=== PATIENT | female | born 1960 | race Caucasian/White ===

== ENCOUNTER 2016-11-22 15:34 | Observation (INO) | payer OTHER ==
[~2016-11-22] VITALS: Ht 154.9 cm; Wt 59.9 kg
[2016-11-22 15:38] VITALS: BP 196/106; PULSE 82; RESP 18; O2SAT 98
--- NOTE | 2016-11-22 16:00 | ED.REPORT ---
HPI-Neurologic Deficit Date of Service Nov 22, 2016 ED Provider: Kevin Singh Patient is a 56 year old female with a history of transient global amnesia who presents to the ED complaining of memory loss onset 45 minutes ago. Her and her father were looking at properties when she started asking the same questions over and over again. She reports that she feels "like I just came out of a dream ". She denies fever, chills, vomiting, diarrhea, visual loss, or any other symptoms. Upon questioning the patient knows her year and the season but not her how old she is, the date, the year, or the president. She has had similar symptoms previously. She saw a neurologist (Tristan) a few years ago. Her mother had the same symptoms multiple times which were diagnosed as TIA's and she ended up having a stroke at age 70. Nursing Notes Stated Complaint: MEMORY LOSS Chief Complaint: Neuro Symptoms/ Deficits Nursing Notes Reviewed: Yes General Time Seen by Provider: 15:48 Chief Complaint Other (Memory loss) Hx Obtained From: Patient, Other family... 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 (0) Horizontal EO Movements: None (0) Visual Jordan: No visual loss (0) Facial Palsy: Normal symmetry (0) Right Arm Motor Drift (10s): No drift 10 sec (0) Left Arm Motor Drift (10s): No drift 10 sec (0) Right Leg Motor Drift (5s): No drift 5 sec (0) Left Leg Motor Drift (5s): No drift 5 sec (0) Limb Ataxia FNF/Heel-Lee: No ataxia (0) Sensation (Arms/Legs/Face): No sensory loss (0) Language Aphasia: No aphasia, normal (0) Dysarthria: No dysarthria, normal (0) Extinction/Inattention: No exctinct/inattent (0) NIHSS Score: 2 Time NIHSS Performed: 15:55 Date NIHSS Performed: Nov 22, 2016 Past Medical History Past Medical History 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 Physical Exam Initial Vital Signs Vital Signs (First) Date Time Temp Pulse Resp B/P Pulse Ox O2 Delivery O2 Flow Rate FiO2 11/22/16 15:38 36.1 82 18 196/106 98 Room Air Initial VS: Reviewed Neck: Full range of motion Abdomen / GI: Soft, Non-tender Skin: Warm, Dry General/Constitutional: Awake, Alert, Well appearing, Well developed Head / Eyes: Atraumatic, Normocephalic Respiratory / Chest: No respiratory distress Cardiovascular: Peripheral circulation NL Neurologic: Speech NL, No motor deficits, No sensory deficits, CN II - XII intact Patient keeps asking questions of orientation, why she is here, and wants to be sure I know she is a hemaphilia carrier. She keeps repeating these questions. Does not recall hasmukh or thanksgiving. Partner and father recall this is very similar to previous presentations. Interpretation & Diagnostics Lab Results Interpretation Result Diagram: 11/22/16 1629 11/22/16 1629 Test 11/22/16 15:56 11/22/16 16:29 11/22/16 16:47 Urine Color Straw (YELLOW) Urine Appearance Clear (CLEAR,HAZY) Urine pH 6.0 (5.0-8.0) Urine Specific Norris 1.015 (1.003-1.035) Urine Protein Negativemg/dL (NEG,TRACE) Urine Glucose (UA) Negativemg/dL (NEGATIVE) Urine Ketones Negativemg/dL (NEGATIVE) Urine Occult Blood Trace (NEGATIVE) Urine Nitrite Negative (NEGATIVE) Urine Bilirubin Negative (NEGATIVE) Urine Urobilinogen Normalmg/dL (NORMAL) Urine Leukocyte Esterase Negative (NEGATIVE) Urine RBC 0-2/hpf (0-2) Urine WBC 0-5/hpf (0-5) Urine Epithelial Cells Occasional/hpf (NONE-MOD) Urine Crystals None seen (NONE SEEN) Urine Bacteria None/hpf (NONE-FEW) Urine Hyaline Casts None/lpf (NONE) Urine Granular Casts None seen (NONE SEEN) Urine Waxy Casts None seen (NONE SEEN) Urine Red Blood Cell Casts None seen (NONE SEEN) Urine White Blood Cell Casts None seen (NONE SEEN) Urine Mucus None seen (None Seen) Urine Trichomonas None seen (NONE SEEN) Urine Yeast None (NONE SEEN) Urinalysis Comment None Urine Culture Reflexed Not indicated Hold Urine Received (Received) White Blood Count 8.7th/mm3 (3.8-10.1) Red Blood Count 5.87mil/mm3 (3.90-5.20) Hemoglobin 16.6g/dL (12.0-15.6) Hematocrit 50.5% (35.0-46.0) Mean Corpuscular Volume 86.0fL (81-100) Mean Corpuscular Hemoglobin 28.3pg (27.0-35.0) Mean Corpuscular Hemoglobin Concent 32.9% (32.0-37.0) Red Cell Distribution Width 13.1% (12.3-15.4) Platelet Count 242bil/L (150-400) Neutrophils (%) (Auto) 64.8% (40-74) Lymphocytes (%) (Auto) 24.5% (14-46) Monocytes (%) (Auto) 8.1% (4-12) Eosinophils (%) (Auto) 1.9% (0-5) Basophils (%) (Auto) 0.6% (0-3) Sodium Level 137mEq/L (134-144) Potassium Level 3.9mEq/L (3.5-5.2) Chloride Level 98mEq/L (97-108) Carbon Dioxide Level 27mmol/L (18-29) Blood Urea Nitrogen 13mg/dL (6-24) Creatinine 0.68mg/dL (0.57-1.00) Estimat Glomerular Filtration Rate 129mL/min (>59) Glucose Level 98mg/dL (60-99) Calcium Level 9.6mg/dL (8.5-10.1) Total Bilirubin 0.3mg/dL (0.0-1.2) Aspartate Amino Transf (AST/SGOT) 36U/L (0-50) Alanine Aminotransferase (ALT/SGPT) 48U/L (0-32) Alkaline Phosphatase 115U/L (25-150) Total Protein 7.6g/dL (6.4-8.4) Albumin 4.2g/dL (3.4-5.0) Hold Ocampo Top Tube Received (Received) ECG Interpretation ECG Interpretation: sinus rate 75 prolonged VT interval LBBB Time: 16:42 Interpreted by: ED physician Re-Eval/Medical Decision Re-Evaluation/Progress #1: Time of Eval: 16:17 )( Re-Eval Neurologic Exam: Alert Re-Evaluation/Progress Note: Rechecked patient. She does not remember getting to the hospital. Re-Evaluation/Progress #2: Time of Eval: 17:44 )( Re-Eval Neurologic Exam: Alert Re-Evaluation/Progress Note: Rechecked patient. She was crying as she was informed that her dog around Hasmukh time as she had forgotten. Discussed options for admission or discharge. Family will discuss and decide. Consultation #1: Consulted With: Neurology Call Returned at: 16:06 Tea Blender: Agrees with eval, Agrees with plan Note: Discussed patient's case with Stephania Olguin at [facility] neurology. Reccomends getting an MRI and EEG instead of CT. Doesn't reccommend discharging unless patient begins to act normally. Consultation #2: Referral / Consult Name: MARTIN VORA MD Consulted With: Neurology Call Returned at: 19:14 Note: Dr. Hudson recommended EEG as soon as available. If the patient is not clearing in a day or so, repeat MRI/MRA. He is willing to see the patient in clinic any day next week if needed in follow-up Consultation #3: Referral / Consult Name: Portia Valenzuela MD Consulted With: Hospitalist Call Returned at: 19:33 Tea Blender: Accepts admit Discharge & Departure Impression: Primary Impression: Amnesia Disposition: ADMITTED TO HOSPITAL Referrals: Martin Hudson MD Scribe Attestation Portions of this note were transcribed by David Cabrera. I, Dr. Singh personally performed the history, physical exam and medical decision-making; I reviewed and confirmed the accuracy of the information in the transcribed note. Signed by: David Cabrera 11/22/16, 1834 copies to: Martin Hudson MD, Kirk H MD Nov 22, 2016 16:00 DAVID CABRERA Nov 22, 2016 18:24
[2016-11-22 16:34] LABS: APPEARANCE,URINE CLEAR (CLEAR,HAZY); COLOR,URINE STRAW (YELLOW); OCCULT BLOOD,URINE TRACE (NEGATIVE); UROBILINOGEN,URINE NORMAL (NORMAL)
[2016-11-22 16:52] LABS: BASOPHILS % (AUTO) 0.6 % (0-3); EOSINOPHILS % (AUTO) 1.9 % (0-5); MONOCYTES % (AUTO) 8.1 % (4-12); Mean Corpuscular Hemoglobin 28.3 pg (27.0-35.0); NEUTROPHILS % (AUTO) 64.8 % (40-74); Platelet Count 242 bil/L (150-400)
[2016-11-22] MEDS ORDERED: Alum-Mag Hydrox-Simeth 30 mL Suspension PO PRN (19:45)
[2016-11-22] MEDS ORDERED: Ondansetron 2 mg/mL 2 mL Inj IVPUSH PRN (19:45)
[2016-11-22 20:30] VITALS: BP 178/101; PULSE 78; RESP 16; O2SAT 98
[2016-11-22 20:42] VITALS: BP 156/100; PULSE 80; RESP 18; O2SAT 98
[2016-11-22] MEDS ORDERED: hydrALAZINE 20 mg/mL Inj IVPUSH PRN (20:55)
[2016-11-22] MEDS ORDERED: Labetalol 5 mg/mL 4 mL Inj IVPUSH PRN (20:55)
--- NOTE | 2016-11-22 20:58 | PCM.HPMED ---
Subjective Date of Service Nov 22, 2016 Primary Provider: Admitting Physician: Portia Valenzuela MD Primary Care Physician: Robyn Aguilera MD Attending Physician: Portia Valenzuela MD Chief Complaint: Recurrent memory loss HISTORY was OBTAINED FROM PATIENT / MEDITECH NOTES History of present illness 56-year-old female with transient global amnesia, with local neurologist Vik Hudson, whom she last saw a few years ago, was brought in by family because of recurrent memory loss less than an hour prior to ER presentation. Dr. Hudson has done an extensive workup previously. ER doctor spoke with primary neurologist who recommended, monitoring for 24 hours, if memory loss is no better than order EEG which is only available on Thursday, and order MRI CVA protocol. crew caller [facility] neurologist indicated to observe until she clears. Walter and Prosper, with neurology staff, declined admission. Per same presentation - expecting 2 days of repeated questions/ anxiety/ waves of warmth/woke. mild head ache in ER no head trauma, has been w/ father when confusion started, BIB life partner, who was present w/ her 1st and only other Transient global amnesia (lost track of 3 days). Currently she has loss track of several months. In ER, she indicated to nurse that she feels like she is dreaming, Confused, Pt. cant remember he age but can remember her birthday. Can't remember month or year but does know it is winter. 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 A, no ASA due to hemorrhage every post transient global amnesia (multiple episodes) elevated Hg, negative polycytemia evaluation Denies: Diabetes mellitus, Hypertension anxiety RLS Exam on admission repeats same answers/questions NAD A and O x 3 mood affect WNL NC/AT no icterus no injected eyes EOMI PERRL /no pharyngeal lesions/ no oral lesions / hearing intact Supple neck CTAB equal chest rise / no accessory muscle use / speaks in full sentences / no rrw RRR S1 S2 / no mrg / 2+ radial pulses Soft nt nd + BS no hepatosplenomegaly No edema no cyanosis no ecchymosis of lower extremities No rash / no jaundice BLANC CNII-XII grossly intact symmetrical No dysmetria of bilateral upper and lower limbs Strength grossly intact of bilateral upper and lower limbs Sensation grossly symmetrical of bilateral upper and lower limbs symmetrical facies UA per ER dipstick neg EKG SR LBBB Trop pending LFT ALT 46 Imaging 07/2011 PROCEDURE: CT BRAIN WITHOUT CONTRAST ([id number]) INDICATIONS: DIZZY AND RINGING IN THE EARS TECHNIQUE: Noncontrast 4.5 mm thick sections acquired from the foramen magnum to the vertex. COMPARISON: None. FINDINGS: CSF spaces: Basal cisterns are patent. No extra-axial fluid collections. Ventricles are normal in size and shape. Brain: No midline shift. No intracranial masses or hemorrhage. Combs-white matter interface is normal. Skull and face: Calvarium and facial bones are intact, without suspicious lesions. Orbits appear normal. Sinuses: Sinuses and mastoids are clear. IMPRESSION: Normal head CT. Active issues and reason for admission Second Recurrent amnesia, history of transient global amnesia, monitor for 24 hours, worse time space of memory loss --if she does not clear, order EEG and MRI-stroke protocol per Dr Hudson her neurologist, anticipate 48hours before clearing per life partner -- Follow-up with her local neurologist --pending lipid panel, serial trop, echo/doppler neck --start asa/lipitor for now --obtain records from Dr. Hudson's office // otherwise she was admitted at [facility] for last amnesic episode new onset Hypertension -- Lisinopril -- life partner indicates no associate HTN previously, would confirm w/ Dr. Hudson pending [facility] dc summary H and p new Elevated ALTs --may already have been worked up before --hepatits panel pending --liver u/s pending Chronic issues known prior to admission, present on admission elevated Hg, neg polycytemia evaluation transient global amnesia (multiple episodes) RLS/hypersomnolence-narcolepsy Denies: Diabetes mellitus, Hypertension anxiety --resume home meds when life partner brings it back tonight Diet cardiac DVT prophylaxis lovenox Code full Disposition OBS status Assessment and plan were discussed with patient family. PMH Social History Smoking Status: Unknown if Ever Smoker Exam Vital Signs Vital Sign - Last Date Time Temp Pulse Resp B/P Pulse Ox O2 Delivery O2 Flow Rate FiO2 11/22/16 20:42 36.8 80 18 156/100 98 Room Air Lab and Diagnostics Result Diagram: 11/22/16 1629 11/22/16 1629 Portia Valenzuela MD Nov 22, 2016 20:57
[2016-11-22] MEDS ORDERED: BusPIRone 15 mg Dividose Tablet PO SCH (21:55)
[2016-11-22] MEDS ORDERED: hydrOXYzine 2 mg/mL 473 mL Syrup PO PRN (21:55)
[2016-11-22] MEDS ORDERED: BUSP15TA3 PO (23:02)
[2016-11-22] MEDS ORDERED: HYDR-656 PO (23:02)
[2016-11-22] MEDS ORDERED: SERT20OR6 PO (23:02)
--- NOTE | 2016-11-22 23:09 | NUR ---
Admit Pt arrived on unit #[id number] from ED via stretcher with all personal belongings. Transferred self to bed. Pt reports feeling confused, "like I just woke up from a dream." Pt knows name and date. Significant other brought home medications in, home med req completed. Bed locked, low position. Will continue to monitor.
[2016-11-22] MEDS ORDERED: hydrOXYzine Pamoate 25 mg Capsule PO PRN (23:50)
[2016-11-23 00:27] VITALS: BP 146/91; PULSE 65; RESP 18; O2SAT 96
[2016-11-23 04:55] VITALS: BP 146/85; PULSE 61; RESP 18; O2SAT 97
--- NOTE | 2016-11-23 04:59 | NUR ---
Confusion Pt reports still feeling confused, but memories are returning. Pt rested in bed through the night with no complaints of pain or discomfort. Denies SOB or n/v. Call light within reach, using appropriately. Significant other at bedside. Pleasant and cooperative with care.
[2016-11-23 06:11] VITALS: PULSE 74
[2016-11-23 07:10] LABS: TROPONIN T < 0.010 ug/L (0.0-0.011)
[2016-11-23] MEDS ORDERED: BusPIRone 15 mg Dividose Tablet PO SCH (08:30)
[2016-11-23] MEDS ORDERED: VALE100C PO (08:36)
[2016-11-23] MEDS ORDERED: SERT25TA2 PO (08:36)
[2016-11-23 09:16] VITALS: BP 108/64; PULSE 71; RESP 18; O2SAT 95
--- NOTE | 2016-11-23 09:22 | DRSVH ---
PROCEDURE: US ABDOMEN ([id number]) INDICATIONS: elevated ALT TECHNIQUE: Real-time scanning was performed of the abdominal and retroperitoneal organs, with image documentatio n. COMPARISON: None. FINDINGS: Liver: Liver is normal in size and homogeneous in echotexture. Gallbladder: The gallbladder wall measures 1.9 mm in thickness. No stones, sludge, pericholecystic f luid, or sonographic Osorio's sign. Biliary ducts: Intrahepatic bile ducts are non-dilated. Extrahepatic bile duct caliber measures 3.8 mm. Normal is 6-7 mm or less in diameter, or 10 mm or less post-cholecystectomy. Pancreas: Visualized portions of the pancreas are sonographically normal. The pancreas is poorly vi sualized due to overlying bowel gas. Spleen: Spleen is normal in size and homogeneous in echotexture. Kidneys: Kidneys are normal in size and echotexture. Right kidney measures 9.1 cm long; left kidney measures 9.1 cm long. There is mild right cortical thinning. No hydronephrosis or nephrolithiasis. No solid masses. Aorta: Visualized aorta is normal in caliber at less than 3 cm. Iliacs: Proximal common iliac arteries are normal in caliber at less than 2.5 cm. IVC: Intrahepatic inferior vena cava is patent. Miscellaneous: No free abdominal fluid. IMPRESSION: 1. No cholelithiasis or findings to suggest choledocholithiasis or acute cholecystitis. Dictated by: Sarah Thomas M.D. on 11/23/2016 at 9:20 Approved by: Sarah Thomas M.D. on 11/23/2016 at 9:21
[2016-11-23 10:05] VITALS: PULSE 71
--- NOTE | 2016-11-23 12:43 | PCM.DIMED ---
Rupert Christian DO 11/23/16 1243: Discharge Instructions Date of Service Nov 23, 2016 Dates of Hospitalization Nov 22, 2016 at 19:45 Discharge Diagnosis Discharge Diagnosis Second Recurrent amnesia, present on admission, resolved Elevated liver enzymes, present on admission, new, Anxiety Patient Instructions Second Recurrent amnesia, present on admission, resolved --Uncertain exact etiology, possible related to your REM sleep disorder --Recommend that you follow-up with your Neurologist Dr. Hudson Elevated liver enzymes, present on admission, new --Uncertain of etiology. --An ultrasound has been done, and it was unremarkable. --This will need to be follow-up by your primary care provider. --We have order a Hepatitis panel. Please tell your primary care provider to call [facility] for results --Please make appt with your primary care provider within 1wks for a "hospital follow-up visit" Anxiety --Continue your home medications. Follow-up Provider: Robyn Aguilera MD Follow-up with PCP in: 1 week Cristino Ring DO 11/23/16 1329: Discharge Instructions Attending's Statement Read and agree Rupert Christian DO Nov 23, 2016 12:43 Cristino Ring DO Nov 23, 2016 13:29
[2016-11-23 13:49] VITALS: BP 151/78; PULSE 69; RESP 18; O2SAT 98
--- NOTE | 2016-11-23 16:00 | DRSVH ---
PROCEDURE: MRI BRAIN WITHOUT CONTRAST ([id number]) INDICATIONS: amnesia/acute ams TECHNIQUE: Noncontrast axial T1 spin echo, axial T2 fast spin echo, sagittal and axial FLAIR, coronal T2 fast sp in echo, axial gradient echo, axial diffusion and ADC through the brain. COMPARISON: None. FINDINGS: Image quality: Excellent. CSF Spaces: Basal cisterns are patent. No extra-axial fluid collections. Ventricles are normal in size and shape. Brain: No intracranial masses or hemorrhage. Combs/white matter interface is normal. Brainstem appe ars normal. Diffusion-weighted images demonstrate no acute ischemic insult. Small areas of increased signal intensity are identified on the flair images within the deep white matter of the supratentori al brain, which are more prominent within the frontal lobes. At least one small area of increased fl air signal is noted within the posterior left parietal lobe. Normal intravascular flow voids are pre sent. Skull and face: Calvarium has normal marrow signal. Orbits appear normal. Sinuses: Sinuses and mastoids are clear. IMPRESSION: 1. No acute intracranial hemorrhage or ischemia. 2. No parenchymal masses are evident. 3. Chronic small vessel ischemic changes within the supratentorial brain. Dictated by: Anish Kaba M.D. on 11/23/2016 at 14:56 Approved by: Anish Kaba M.D. on 11/23/2016 at 14:59
--- NOTE | 2016-11-23 16:00 | NUR ---
LOC Patient alert and oriented this morning. Patient is aware of person, place, and time. Patient is aware of president and inauguration on Thursday. Patient is aware of home medications and when she had them last.
--- NOTE | 2016-11-23 16:24 | PCM.DC.MED ---
Discharge Summary Date of Service Nov 23, 2016 Dates of Hospitalization Date of Hospital Admission Nov 22, 2016 at 19:45 Date of Discharge: Nov 23, 2016 Providers: Admitting Physician: Portia Valenzuela MD Primary Care Physician: Robyn Aguilera MD Attending Physician: Portia Valenzuela MD Diagnosis at Time of Discharge Diagnosis at Time of Discharge Second Recurrent amnesia, present on admission, resolved Elevated liver enzymes, present on admission, new, Anxiety Procedures XRay, CTs & MRIs PROCEDURE: MRI BRAIN WITHOUT CONTRAST INDICATIONS: amnesia/acute ams TECHNIQUE: Noncontrast axial T1 spin echo, axial T2 fast spin echo, sagittal and axial FLAIR, coronal T2 fast spin echo, axial gradient echo, axial diffusion and ADC through the brain. COMPARISON: None. FINDINGS: Image quality: Excellent. CSF Spaces: Basal cisterns are patent. No extra-axial fluid collections. Ventricles are normal in size and shape. Brain: No intracranial masses or hemorrhage. Combs/white matter interface is normal. Brainstem appears normal. Diffusion-weighted images demonstrate no acute ischemic insult. Small areas of increased signal intensity are identified on the flair images within the deep white matter of the supratentorial brain, which are more prominent within the frontal lobes. At least one small area of increased flair signal is noted within the posterior left parietal lobe. Normal intravascular flow voids are present. Skull and face: Calvarium has normal marrow signal. Orbits appear normal. Sinuses: Sinuses and mastoids are clear. IMPRESSION: 1. No acute intracranial hemorrhage or ischemia. 2. No parenchymal masses are evident. 3. Chronic small vessel ischemic changes within the supratentorial brain. Dictated by: Anish Kaba M.D. on 11/23/2016 at 14:56 PROCEDURE: US ABDOMEN INDICATIONS: elevated ALT FINDINGS: Liver: Liver is normal in size and homogeneous in echotexture. Gallbladder: The gallbladder wall measures 1.9 mm in thickness. No stones, sludge, pericholecystic fluid, or sonographic Osorio's sign. Biliary ducts: Intrahepatic bile ducts are non-dilated. Extrahepatic bile duct caliber measures 3.8 mm. Normal is 6-7 mm or less in diameter, or 10 mm or less post-cholecystectomy. Pancreas: Visualized portions of the pancreas are sonographically normal. The pancreas is poorly visualized due to overlying bowel gas. Spleen: Spleen is normal in size and homogeneous in echotexture. Kidneys: Kidneys are normal in size and echotexture. Right kidney measures 9.1 cm long; left kidney measures 9.1 cm long. There is mild right cortical thinning. No hydronephrosis or nephrolithiasis. No solid masses. Aorta: Visualized aorta is normal in caliber at less than 3 cm. Iliacs: Proximal common iliac arteries are normal in caliber at less than 2.5 cm. IVC: Intrahepatic inferior vena cava is patent. Miscellaneous: No free abdominal fluid. IMPRESSION: 1. No cholelithiasis or findings to suggest choledocholithiasis or acute cholecystitis. Dictated by: Sarah Thomas M.D. on 11/23/2016 at 9:20 Brief History Pt 56-year-old female with transient global amnesia, with local neurologist Vik Hudson, whom she last saw a few years ago, was brought in by family because of recurrent memory loss less than an hour prior to ER presentation. Dr. Hudson has done an extensive workup previously. ER doctor spoke with primary neurologist who recommended, monitoring for 24 hours, if memory loss is no better than order EEG which is only available on Thursday, and order MRI CVA protocol. class a regional drivers [facility] neurologist indicated to observe until she clears. [place], with neurology staff, declined admission. Per same presentation - expecting 2 days of repeated questions/ anxiety/ waves of warmth/woke. mild head ache in ER no head trauma, has been w/ father when confusion started, BIB life partner, who was present w/ her 1st and only other Transient global amnesia (lost track of 3 days). Currently she has loss track of several months. In ER, she indicated to nurse that she feels like she is dreaming, Confused, Pt. cant remember he age but can remember her birthday. Can't remember month or year but does know it is winter. States that Obama is president - (yesterday was inauguration though) -- now indicates Trump, indicates that short term memory does become Note per Portia Valenzuela MD on 11/23/16 @ 00:16 Hospital Course Patient is a 56yof with MHx significant for REM sleep disorder and recurrent amnesia presented with with the same. MRI however, was unremarkable. Etiology uncertain. Patient did states increase stress at work. She sees Neurologist Dr. Vik Hudson for her sleep disorder. Second Recurrent amnesia, present on admission, stable -- Etiology uncertain. Possible related to increase stress at work and REM sleep disorder -- MRI r/o stroke negative -- Advise that patient follow-up with Neurologist and check with PCP Hypertension, present on admission, stable -- Initial BP 190/106 in the setting of anxiety, has stabilized 140's/90's --This is a new finding per significant others and also new to patient -- Recommended that patient follow-up with PCP in 1kw. Mild Transaminitis, present on admission, new -- US ultrasound though unremarkable. --Hepatits panel still pending. Please contact [facility] for results Exam Vital Signs (Last) Date Time Temp Pulse Resp B/P Pulse Ox O2 Delivery O2 Flow Rate FiO2 11/23/16 13:49 36.7 69 18 151/78 98 Room Air Exam Gen: No acute distress, well-developed, well-nourished, appropriately interactive HEENT: Normocephalic, atraumatic. External ears without defect. Pupils equal, round, and reactive to light and accommodation. Anicteric sclerae, moist conjunctivae, and no lid lag. Oropharynx free of erythema and cobble stoning with moist mucosa. Neck: supple, no JVD Cardio: Regular rate and rhythm with no murmurs, rubs, or gallops appreciated Pulm: b/l air sound, no crackles, wheezes, or rhonchi. Normal respiratory effort with no use of accessory muscles. Abd: positive bowel tone. Soft, nontender, nondistended. Extremities: No clubbing, cyanosis, edema, or lymphadenopathy appreciated. Skin: Normal temperature, turgor, and texture; no rash, ulcers, or subcutaneous nodules appreciated. Neuro: Cranial nerves grossly intact. Normal muscle strength, tone, and bulk. Reflexes, coordination, and sensory function within normal limits. No known gait impairment. Psyc: Normal mood and affect. Alert and oriented to person, place, and time. Able to complete serial 7's, speech fluid, thoughts and content consistent, memory: can recall 3 objects, recall 1st president, Test 11/22/16 15:56 11/22/16 16:29 11/22/16 16:47 11/23/16 06:05 Urine Color Straw (YELLOW) Urine Appearance Clear (CLEAR,HAZY) Urine pH 6.0 (5.0-8.0) Urine Specific [place] 1.015 (1.003-1.035) Urine Protein Negativemg/dL (NEG,TRACE) Urine Glucose (UA) Negativemg/dL (NEGATIVE) Urine Ketones Negativemg/dL (NEGATIVE) Urine Occult Blood Trace (NEGATIVE) Urine Nitrite Negative (NEGATIVE) Urine Bilirubin Negative (NEGATIVE) Urine Urobilinogen Normalmg/dL (NORMAL) Urine Leukocyte Esterase Negative (NEGATIVE) Urine RBC 0-2/hpf (0-2) Urine WBC 0-5/hpf (0-5) Urine Epithelial Cells Occasional/hpf (NONE-MOD) Urine Crystals None seen (NONE SEEN) Urine Bacteria None/hpf (NONE-FEW) Urine Hyaline Casts None/lpf (NONE) Urine Granular Casts None seen (NONE SEEN) Urine Waxy Casts None seen (NONE SEEN) Urine Red Blood Cell Casts None seen (NONE SEEN) Urine White Blood Cell Casts None seen (NONE SEEN) Urine Mucus None seen (None Seen) Urine Trichomonas None seen (NONE SEEN) Urine Yeast None (NONE SEEN) Urinalysis Comment None Urine Culture Reflexed Not indicated Hold Urine Received (Received) White Blood Count 8.7th/mm3 (3.8-10.1) Red Blood Count 5.87mil/mm3 (3.90-5.20) Hemoglobin 16.6g/dL (12.0-15.6) Hematocrit 50.5% (35.0-46.0) Mean Corpuscular Volume 86.0fL (81-100) Mean Corpuscular Hemoglobin 28.3pg (27.0-35.0) Mean Corpuscular Hemoglobin Concent 32.9% (32.0-37.0) Red Cell Distribution Width 13.1% (12.3-15.4) Platelet Count 242bil/L (150-400) Neutrophils (%) (Auto) 64.8% (40-74) Lymphocytes (%) (Auto) 24.5% (14-46) Monocytes (%) (Auto) 8.1% (4-12) Eosinophils (%) (Auto) 1.9% (0-5) Basophils (%) (Auto) 0.6% (0-3) Sodium Level 137mEq/L (134-144) Potassium Level 3.9mEq/L (3.5-5.2) Chloride Level 98mEq/L (97-108) Carbon Dioxide Level 27mmol/L (18-29) Blood Urea Nitrogen 13mg/dL (6-24) Creatinine 0.68mg/dL (0.57-1.00) Estimat Glomerular Filtration Rate 129mL/min (>59) Glucose Level 98mg/dL (60-99) Calcium Level 9.6mg/dL (8.5-10.1) Total Bilirubin 0.3mg/dL (0.0-1.2) Aspartate Amino Transf (AST/SGOT) 36U/L (0-50) Alanine Aminotransferase (ALT/SGPT) 48U/L (0-32) Alkaline Phosphatase 115U/L (25-150) Total Protein 7.6g/dL (6.4-8.4) Albumin 4.2g/dL (3.4-5.0) Hold Ocampo Top Tube Received (Received) Troponin T < 0.010ug/L (0.0-0.011) Triglycerides Level 66mg/dL (0-149) Cholesterol Level 195mg/dL (100-199) LDL Cholesterol, Calculated 110.800mg/dL (0-99) VLDL Cholesterol 13.200mg/dL HDL Cholesterol 71mg/dL (>39) Cholesterol/HDL Ratio 2.75 (0.0-4.4) Discharge Medications Discharge Medications Buspirone (Buspirone) 15 Mg Tablet 15 MG PO BID (Reported) Sertraline HCl (Zoloft) 25 Mg Tablet 25 MG PO DAILY (Reported) As needed Valerian Root (Valerian Root) 100 Mg Capsule Unknown Dose PO QPM PRN PRN For Restlessness (Reported) hydrOXYzine Hcl (HydrOXYzine Hcl) 25 Mg Tablet 25 MG PO TID PRN PRN For Anxiety (Reported) Followup Plan Patient Instructions Second Recurrent amnesia, present on admission, resolved --Uncertain exact etiology, possible related to your REM sleep disorder --Recommend that you follow-up with your Neurologist Dr. Hudson Elevated liver enzymes, present on admission, new --Uncertain of etiology. --An ultrasound has been done, and it was unremarkable. --This will need to be follow-up by your primary care provider. --We have order a Hepatitis panel. Please tell your primary care provider to call [facility] for results --Please make appt with your primary care provider within 1wks for a "hospital follow-up visit" Anxiety --Continue your home medications. Follow-up Provider: Robyn Aguilera MD Follow-up with PCP in: 1 week Time spent 40 minutes Attending Statement I have seen and evaluated patient at bedside and directly supervised care provided by resident physician. I agree with above documentation. Rupert Christian DO Nov 23, 2016 16:24 Cristino Ring DO Nov 24, 2016 07:03
--- NOTE | 2016-11-23 17:00 | NUR ---
Discharge Patient given discharge orders. Patient IV removed fully intact and asymptomatic. Patient given medication list with verbal and written instructions of when next dose of medication is due. Patient given follow up instructions. Patient in room at time of discharge for transportation. Patient reminded to take all personal belongings. Patient awaiting for MD to talk with her about MRI results then will be ready for discharge.
--- NOTE | 2016-11-23 17:12 | NUR ---
Social Work: Screening Data: Pt is a 56 y/o female admitted for amnesia. Pt's PCP is Dr Aguilera, pt's insurance is [employer]. EMR reviewed. No d/c planning needs anticipated. 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 Assessment: Pt who is independent at baseline. Plan: Pt will d/c home via POV when medically stable. No d/c planning needs anticipated. 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 ROSIBEL Benson
[2016-11-24 06:07] LABS: Hepatitis A Antibody IgM Negative (Negative); Hepatitis B Core Antibody IgM Negative (Negative)
[2016-11-25 04:08] LABS: Free Thyroxine Index 1.8 (1.2-4.9); Thyroxine (T4) 6.8 ug/dL (4.5-12.0)
== END 2016-11-23 17:55 | disposition home or self-care (01) ==
LOC: SED 15:34 → MPC 19:45
PROVIDERS: ADMIT Urology; ATTEND Urology
DX: G45.4 Transient global amnesia (principal); I10 Essential (primary) hypertension; R94.5 Abnormal results of liver function studies; F41.9 Anxiety disorder, unspecified
CPT/HCPCS: 36415; 70551; 76700; 80053; 80061; 81000; 81002; 84436; 84443; 84479; 84484; 85025; 86705; 86709; 87340; 87341; 93005; 99285; G0378; G0472